=== PATIENT | male | born 1950 | race Hispanic/Latino ===

== ENCOUNTER 2017-09-10 08:13 | Day surgery (SDC) | payer BC ==
[2017-09-04 13:38] VITALS: BMI 37.3
--- NOTE | 2017-09-08 04:03 | HP ---
Copied To: Zuleyma Sams MD Attending MD: Zuleyma Sams MD REASON FOR ADMISSION: Abnormal stress test, for cardiac catheterization, possible angioplasty. BRIEF CLINICAL HISTORY: This is a 67-year-old morbidly obese male with past medical history significant for depression, hyperlipidemia, hypertension, history of coronary artery disease status post PTCA of LAD on 08/22/2016; prior to this, the patient had a cardiac catheterization on 10/22/2015, RCA was nonobstructive by FFR, medical treatment recommended, who recently had a followup stress test that shows apical anterior ischemia and the patient is scheduled for elective cardiac catheterization and possible angioplasty. PAST MEDICAL HISTORY: Significant for coronary artery disease, status post PTCA of LAD on 08/22/2016 at [facility]. Prior to that, the patient had a cardiac catheterization on and RCA found to be nonobstructive by FFR. PREVIOUS CARDIAC WORKUP: As follows; the patient had an echocardiography on 08/20/2017 that shows ejection fraction of 55% to 60%, mild tricuspid regurgitation, trace to mild mitral regurgitation, RV systolic pressure of 34. The patient had a stress test on 08/20/2017 that shows apical ischemia, partially reversible anterior apical defect, suspicious for ischemia, ejection fraction 56%, dated 08/22/2017. The patient had a PTCA of LAD on 08/22/2016 at [facility]. The patient had prior to that cardiac catheterization on , RCA found to be nonobstructive by FFR. CURRENT MEDICATIONS: The patient is taking Flomax 0.4 mg daily, Lexapro 20 mg daily, Plavix 75 mg daily, atorvastatin 10 mg daily, aspirin 81 mg daily. REVIEW OF SYSTEMS: As per HPI. ALLERGIES: NO KNOWN DRUG ALLERGIES, EXCEPT SEASONAL ALLERGIES. PHYSICAL EXAMINATION: VITAL SIGNS: Height of the patient is 6 feet, weight of the patient is 286 pounds, body mass index of 38 kg/sq m. Rest of the vitals: Temperature afebrile, heart rate 70, blood pressure 129/70. HEENT: PERRLA, intact. NECK: Supple. No carotid bruit. No thyromegaly. CHEST: Clear to auscultation. HEART: S1 and S2 regular. ABDOMEN: Soft. EXTREMITIES: Clubbing and cyanosis, negative. LABORATORY DATA: Blood workup is pending. IMPRESSION: A 67-year-old male with a past medical history significant for coronary artery disease status post percutaneous transluminal coronary angioplasty of left anterior descending in 2017, abnormal stress test, scheduled for elective cardiac catheterization and possible angioplasty. Further recommendations after cardiac catheterization. We will follow with you. Thank you, Dr. Ferguson for providing us the opportunity in taking care of the patient, Thomas Lugo. Zuleyma Sams MD
[2017-09-10 09:18] LABS: BASO # 0.03 K/mm3 (0.0-2.0); BASO % 0.4 % (0.0-3.0); BLOOD UREA NITROGEN 10 mg/dL (7-21); CALCIUM 8.9 mg/dL (8.4-10.5); EOS # 0.5 (0.0-0.7); EOS % 6.9 % (1.5-5.0); GFR AFRICAN-AMERICAN > 60; GFR NON-AFRICAN AMERICAN > 60; GRAN # 4.33 (1.4-6.5); GRAN % 60.6 % (50.0-68.0); HDL CHOLESTEROL 40 mg/dL (29-60); HEMOGLOBIN 13.3 g/dL (14.0-18.0); LYMPH # 1.9 (1.2-3.4); LYMPH % 26.1 % (22.0-35.0); MEAN CELL VOLUME 86.8 fl (80.0-105.0); MEAN CORPUSCULAR HEMOGLOBIN 29.7 pg (25.0-35.0); MEAN CORPUSCULAR HGB CONC 34.2 g/dl (31.0-37.0); MEAN PLATELET VOLUME 10.9 fl (7.0-11.0); MONO # 0.4 (0.1-0.6); RBC 4.48 10^6/uL (3.5-6.1); RED CELL DISTRIBUTION WIDTH 13.2 % (11.5-14.5); WHITE BLOOD COUNT 7.1 10^3/ul (4.5-11.0)
[2017-09-10 09:19] LABS: INR 1.09; PROTHROMBIN TIME 12.6 SECONDS (9.4-12.5)
[2017-09-10 09:22] LABS: PARTIAL THROMBOPLASTIN TIME 28.1 Seconds (25.1-36.5)
[2017-09-10 09:29] LABS: LDL CHOLESTEROL 79 mg/dL (0-129)
[2017-09-10 10:07] VITALS: RESP 18
[2017-09-10] MEDS ORDERED: Iohexol 350 MG/100 ML VIAL ONE (11:19)
[2017-09-10] MEDS ORDERED: Phenylephrine 10 mg/ml Inj ONE (11:19)
[2017-09-10] MEDS ORDERED: Verapamil 2 ML ONE (11:19)
[2017-09-10] MEDS ORDERED: Iohexol 350mgl/ml 50 ML ONE (11:19)
[2017-09-10] MEDS ORDERED: Lidocaine 2% Inj (20ml) ONE (11:19)
[2017-09-10] MEDS ORDERED: Nitroglycerin 50mg in D5W 50 MG/250 ML BOTTLE IV ONE (11:20)
[2017-09-10] MEDS ORDERED: Midazolam 2 MG/2 ML VIAL ONE (11:42)
[2017-09-10] MEDS ORDERED: Bacitracin 500 Units/gm Oint Foilpak UD TOP ONE (12:20)
[2017-09-10] MEDS ORDERED: Sodium Chloride 0.9% 1,000 ML IV SCH (12:30)
[2017-09-10 12:38] VITALS: TEMP 97.7
--- NOTE | 2017-09-10 12:43 | CPOSTOP ---
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 TYPE OF ANESTHESIA: Moderate conscious sedation, total dose given 1 mg of Versed and 50 of fentanyl. PRE-PROCEDURE DIAGNOSES: Unstable angina, abnormal stress test, history of coronary artery disease, history of percutaneous transluminal coronary angioplasty. PROCEDURE PERFORMED: Left heart catheterization. FINDINGS: One-vessel nonobstructive coronary artery disease. FINAL DIAGNOSIS: Nonobstructive coronary artery disease. POST PROCEDURE CONDITION: The patient's condition is good. VASCULAR ACCESS SITE: Left radial artery. CLOSURE DEVICE: TR band. TOTAL RADIATION DOSE: 6249.01 milligray unit. TOTAL FLUORO TIME: 2.1 minute. Zuleyma Sams MD
[2017-09-10 14:31] VITALS: O2SAT 99
[2017-09-10 15:11] VITALS: BP 116/72; PULSE 55
[2017-09-10] MEDS ORDERED: Bacitracin 500 Units/gm Oint Foilpak UD ONE (15:11)
--- NOTE | 2017-09-10 18:55 | CARD ---
APPROVED REPORT Date of service: 09/10/2017 Procedure(s) performed: Left Heart Catheterization HISTORY The patient is a 67 year-old male with a history of : most recent EF: 56%. (EF Method: RADIONUCLIDE), previous diagnostic cath, previous PCI (The PCI date was 08/22/2016), hypertension , dyslipidemia , Hx of Morbid obesity, CAD S/p PTCA of LAD at [facility] on 08/22/2016 and prior to that had LHC/ FFR on RCA non obstructive on 10/22/2015.( RCA 50-60% proximal stenosis), had F/u abnormal stress test, anterior apical reversible ischemia.. INDICATION The indication(s) include : positive stress test. CASE TECHNIQUE The patient was brought electively to the Cardiac Catheterization Laboratory in a fasting state and was prepped and draped in a sterile manner. The left wrist was infiltrated with 2% Lidocaine subcutaneous anesthesia. A 6FR GLIDESHEATH ACCESS KIT sheath was inserted into the left radial artery without difficulty. Coronary angiography was performed using coronary diagnostic catheters. The left coronary system was accessed and visualized with a Diagnostic ,5F JL 4 CATH DXT 100 CM catheter. The right coronary system was accessed and visualized with a Diagnostic ,5F JR 4 CATH DXT 100 CM catheter. The left ventricle was accessed and visualized with a 5 Fr Pigtail 145 (Angled) catheter. Left ventricular/Aortic Valve gradient assessed on pullback. Left ventriculogram was performed in LESLIE projection. Closure device was deployed with a Fr TR Band (Large) without any complications. The patient tolerated the procedure well and there were no complications associated with the procedure. Vessel Analysis The patient's coronary anatomy is right dominant. The left main coronary artery is a medium size vessel with diffuse calcification noted throughout this vessel and without significant stenosis. The left main bifurcates to the left anterior descending and circumflex. The left anterior descending artery is a medium size vessel patent stent in proximal LAD. patent s The first diagonal branch is a small size vessel with diffuse calcification noted throughout this vessel and without significant stenosis. The second diagonal branch is a small size vessel with diffuse calcification noted throughout this vessel and without significant stenosis. The circumflex artery is a medium size vessel with diffuse calcification noted throughout this vessel and without significant stenosis. The first obtuse marginal branch is a medium size vessel with diffuse calcification noted throughout this vessel and without significant stenosis. The second obtuse marginal branch is a medium size vessel with diffuse calcification noted throughout this vessel and without significant stenosis. The right coronary artery is a large size vessel with diffuse calcification noted throughout this vessel and without significant stenosis. There is a 50-60% stenosis in the proximal segment. unchanged from 10/22/2015. The right posterior descending artery is a medium size vessel with diffuse calcification noted throughout this vessel and without significant stenosis. The right posterolateral branch is a small size vessel with diffuse calcification noted throughout this vessel and without significant stenosis. Left Ventricle The left ventricle is borderline in size with normal contractility. There was no cardiomyopathy. The left ventricular ejection fraction is estimated to be 55-60%. The left ventricular end diastolic pressure is 15 mmHg. There was no gradient across the aortic valve upon pullback. Conclusion Non obstructive CAD. Preserved [id number]. Patent Stent in LAD Moderate DIz in RCA unchanged from 10/22/2015. Recommendations Cardiac Rehabilitation Referral Aggressive Medical TherapyCardiac Risk Reduction Program Weight Loss Reduction Program CC; Dr. Ferguson
--- NOTE | 2017-09-10 22:40 | CARD ---
APPROVED REPORT Date of service: 09/10/2017 EKG Measurement Heart [id number] <Conclusion> Normal sinus rhythm Inferior infarct, age undetermined Abnormal ECG
== END 2017-09-10 16:25 | disposition home or self-care (01) ==
LOC: CATH 08:13
PROVIDERS: ATTEND Internal Medicine Cardiovascular Disease
DX: I25.10 Atherosclerotic heart disease of native coronary artery without angina pectoris (principal); I25.110 Atherosclerotic heart disease of native coronary artery with unstable angina pectoris; E78.5 Hyperlipidemia, unspecified; I10 Essential (primary) hypertension; R94.39 Abnormal result of other cardiovascular function study; E66.01 Morbid (severe) obesity due to excess calories; Z68.37 Body mass index [BMI] 37.0-37.9, adult; Z95.5 Presence of coronary angioplasty implant and graft
CPT/HCPCS: 36415; 80048; 80061; 85025; 85610; 85730; 86850; 86900; 93005; 93458; 99152; C1769; J1644 ×2; J2250; J3010; J7030; J7040; Q9967